=== PATIENT | female | born 1965 | race Caucasian/White ===

== ENCOUNTER 2017-10-10 13:25 | Inpatient (IN) ==
[2017-10-10] MEDS ORDERED: Bisacodyl 10 MG Supp RECTAL PRN (22:27)
[2017-10-10] MEDS ORDERED: Acetaminophen 325 MG Tablet PO PRN (22:27)
[2017-10-10] MEDS ORDERED: Temazepam 15 MG Capsule PO PRN (22:27)
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
[2017-10-10] MEDS ORDERED: Heparin Drip 25,000 UNIT/250 ML BAG IV.CONT PRN (22:59)
[2017-10-11 00:57] LABS: Hematocrit 34.1 % (35.0-46.0); Hemoglobin 11.4 gm/dL (11.6-15.3); Mean Corpuscular HGB Conc 33.4 % (32.0-36.0); Mean Corpuscular Hemoglobin 30.6 pg (27.0-34.0); Mean Corpuscular Volume 91.4 fL (80.0-100.0); Mean Platelet Volume 7.1 fL (7.0-11.0); Platelet Count 330 th/mm3 (150-450); Red Blood Count 3.73 mil/mm3 (4.00-5.30)
[2017-10-11] MEDS ORDERED: Chlorhexidine Gluconate 2% 1 Pack (2 Cloths) TOPICAL PRN (04:00)
[2017-10-11 04:56] LABS: Baso % (Auto) 0.2 % (0.0-2.0); Eos # (Auto) 0.2 th/mm3 (0.0-0.4); Eos % (Auto) 1.6 % (0.0-4.0); Hematocrit 35.4 % (35.0-46.0); Hemoglobin 11.9 gm/dL (11.6-15.3); Lymph # (Auto) 3.5 th/mm3 (1.0-4.8); Lymph % (Auto) 34.1 % (9.0-44.0); Mean Corpuscular HGB Conc 33.6 % (32.0-36.0); Mean Corpuscular Hemoglobin 30.6 pg (27.0-34.0); Mean Corpuscular Volume 91.2 fL (80.0-100.0); Mean Platelet Volume 6.9 fL (7.0-11.0); Mono # (Auto) 0.8 th/mm3 (0.0-0.9); Mono % (Auto) 7.8 % (0.0-8.0); Neut # (Auto) 5.7 th/mm3 (1.8-7.7); Neut % (Auto) 56.3 % (16.0-70.0); Platelet Count 357 th/mm3 (150-450); Red Blood Count 3.89 mil/mm3 (4.00-5.30); Red Cell Distribution Width 13.8 % (11.6-17.2); White Blood Count 10.1 th/mm3 (4.0-11.0)
[2017-10-11 05:09] LABS: INR 1.1 Ratio; Prothrombin Time 10.9 sec (9.8-11.6)
[2017-10-11 05:11] LABS: Activated Partial Thrombo Time 111.3 sec (24.3-30.1)
[2017-10-11 05:17] LABS: Calcium 8.9 mg/dL (8.5-10.1); Carbon Dioxide 24.5 meq/L (21.0-32.0); Potassium 3.5 meq/L (3.5-5.1)
[2017-10-11] MEDS: Chlorhexidine Gluconate 2% 1 Pack (2 Cloths) TOPICAL SCH (07:47)
[2017-10-11] MEDS: Famotidine 20 MG Tablet PO SCH (09:15)
[2017-10-11] MEDS: Ferrous Sulfate 325 MG Tablet PO SCH (09:15)
[2017-10-11] MEDS: amLODIPine 10 MG Tablet PO SCH (09:15)
[2017-10-11] MEDS: Senna/Docusate Sodium 8.6/50 MG Tablet PO SCH ×2 (09:15→20:35)
--- NOTE | 2017-10-11 13:27 | P.PNIM ---
Subjective Interval history: Follow up: PE Patient resting in bed Reports feeling better VSS Physical Exam Vital signs: Vital Signs 10/10/17 20:01 10/10/17 20:30 10/10/17 21:00 Temperature Pulse Rate 78 78 91 H Respiratory Rate 19 28 H 25 H Blood Pressure 171/70 H 155/73 H 168/88 H Pulse Oximetry 100 100 98 10/10/17 21:30 10/10/17 22:00 10/10/17 22:30 Temperature Pulse Rate 89 85 76 Respiratory Rate 25 H 26 H 23 Blood Pressure 143/79 H 150/88 H 139/73 Pulse Oximetry 99 100 99 10/10/17 23:00 10/11/17 00:00 10/11/17 01:00 Temperature 98.5 F Pulse Rate 79 72 74 Respiratory Rate 28 H 26 H 28 H Blood Pressure 127/76 126/66 130/68 Pulse Oximetry 99 98 97 10/11/17 02:00 10/11/17 02:59 10/11/17 03:00 Temperature Pulse Rate 68 66 Respiratory Rate 14 17 Blood Pressure 136/76 124/66 Pulse Oximetry 97 99 98 10/11/17 04:00 10/11/17 05:00 10/11/17 05:05 Temperature Pulse Rate 87 66 67 Respiratory Rate 27 H 17 17 Blood Pressure 138/88 114/57 L Pulse Oximetry 98 98 100 10/11/17 06:00 10/11/17 07:00 10/11/17 08:00 Temperature Pulse Rate 68 72 83 Respiratory Rate 18 20 23 Blood Pressure Pulse Oximetry 100 98 100 10/11/17 09:00 10/11/17 09:18 10/11/17 10:00 Temperature Pulse Rate 77 83 79 Respiratory Rate 28 H 27 H 25 H Blood Pressure 145/75 H Pulse Oximetry 99 97 99 10/11/17 10:01 10/11/17 11:00 10/11/17 11:01 Temperature Pulse Rate 78 85 82 Respiratory Rate 20 42 H 38 H Blood Pressure 135/63 116/59 L Pulse Oximetry 98 97 99 Intake & Output 10/10/17 10/11/17 10/11/17 18:59 06:59 18:59 Intake Total 480 / 480 Balance 480 / 480 Weight 94 kg Intake: Oral 480 / 480 Other: # Voids 5 # Bowel Movements 0 Weight On Admission 94 kg Narrative: GENERAL: This is a well-nourished, well-developed patient, in no apparent distress. CARDIOVASCULAR: Regular rate and rhythm RESPIRATORY: Clear to auscultation. Breath sounds equal bilaterally. GASTROINTESTINAL: Abdomen soft, non-tender, nondistended. Normal active bowel sounds MUSCULOSKELETAL: Extremities without clubbing, cyanosis, or edema. NEURO: Alert & Oriented x4 to person, place, time, situation. Moves all ext x4 Results - Labs CBC & Chem 7: 10/12/17 07:42 10/11/17 04:20 Laboratory Results - last 24 hr 10/10/17 10/11/17 10/11/17 20:00 00:09 04:20 WBC 12.0 H 10.1 RBC 3.73 L 3.89 L Hgb 11.4 L 11.9 Hct 34.1 L 35.4 MCV 91.4 91.2 MCH 30.6 30.6 MCHC 33.4 33.6 RDW 14.0 13.8 Plt Count 330 357 MPV 7.1 6.9 L Neut % (Auto) 56.3 Lymph % (Auto) 34.1 Hand % (Auto) 7.8 Eos % (Auto) 1.6 Baso % (Auto) 0.2 Neut # (Auto) 5.7 Lymph # (Auto) 3.5 Hand # (Auto) 0.8 Eos # (Auto) 0.2 Baso # (Auto) 0.0 WBC Differential . Differential Comment Auto diff final PT INR APTT Sodium Potassium Chloride Carbon Dioxide Anion Gap BUN Creatinine Estimated GFR Random Glucose Calcium Nasal Screen MRSA (PCR) Not detected 10/11/17 10/11/17 10/11/17 04:20 04:20 04:20 WBC RBC Hgb Hct MCV MCH MCHC RDW Plt Count MPV Neut % (Auto) Lymph % (Auto) Hand % (Auto) Eos % (Auto) Baso % (Auto) Neut # (Auto) Lymph # (Auto) Hand # (Auto) Eos # (Auto) Baso # (Auto) WBC Differential Differential Comment PT 10.9 INR 1.1 APTT 111.3 H* D Cancelled Sodium 142 Potassium 3.5 Chloride 105 Carbon Dioxide 24.5 Anion Gap 13 BUN 12 Creatinine 0.91 Estimated GFR 65 L Random Glucose 109 H Calcium 8.9 Nasal Screen MRSA (PCR) 10/11/17 10/11/17 05:28 10:35 WBC RBC Hgb Hct MCV MCH MCHC RDW Plt Count MPV Neut % (Auto) Lymph % (Auto) Hand % (Auto) Eos % (Auto) Baso % (Auto) Neut # (Auto) Lymph # (Auto) Hand # (Auto) Eos # (Auto) Baso # (Auto) WBC Differential Differential Comment PT INR APTT 120.9 H* 56.9 H D Sodium Potassium Chloride Carbon Dioxide Anion Gap BUN Creatinine Estimated GFR Random Glucose Calcium Nasal Screen MRSA (PCR) Assessment and Plan - Assessment (1) Hypertension Code(s): I10 - Essential (primary) hypertension Status: Acute (2) Asthma Code(s): J45.909 - Unspecified asthma, uncomplicated Status: Acute (3) Pulmonary embolism Code(s): I26.99 - Other pulmonary embolism without acute cor pulmonale Status : Acute Plan: Acute pulmonary embolus CTA reviewed and reveals: 1. Small proximal lobar and segmental pulmonary arterial filling defects characteristic of pulmonary emboli. 2. Significant thrombus in the main pulmonary arteries. 3. No evidence of acute airspace disease or congestion. US bilateral lower extremities reviewed and reveals : Negative exam. No sonographic or Doppler findings of deep venous thrombosis in either lower extremity. Patient was started on heparin drip with bolus in [place]. VSS will DC heparin drip and transition to Xarelto Dr. Horvath discussed the case with hematology/oncology hand button splitter no further recommendations at this time, recommends outpatient follow up with hematology/ oncology Hypertension Continue patient's home medication of amlodipine. Asthma inhaler as necessary. - Attending Attestation Patient examined. Assessment and plan formulated with Ana M RANDLE I agree with the above.
[2017-10-11] MEDS: Rivaroxaban 15 MG Tablet PO SCH ×2 (14:32→20:34)
[2017-10-12] MEDS: Chlorhexidine Gluconate 2% 1 Pack (2 Cloths) TOPICAL SCH (06:42)
[2017-10-12] MEDS: Levothyroxine 125 MCG Tablet PO SCH (07:00)
[2017-10-12] MEDS: Rivaroxaban 15 MG Tablet PO SCH ×2 (08:07→21:40)
[2017-10-12] MEDS: Senna/Docusate Sodium 8.6/50 MG Tablet PO SCH ×2 (08:07→21:41)
[2017-10-12] MEDS: Famotidine 20 MG Tablet PO SCH (08:07)
[2017-10-12] MEDS: Ferrous Sulfate 325 MG Tablet PO SCH (08:07)
[2017-10-12] MEDS: amLODIPine 10 MG Tablet PO SCH (08:07)
[2017-10-12 09:04] LABS: Hematocrit 38.4 % (35.0-46.0); Mean Corpuscular Hemoglobin 31.2 pg (27.0-34.0); Mean Corpuscular Volume 91.7 fL (80.0-100.0); Mean Platelet Volume 6.8 fL (7.0-11.0); Platelet Count 358 th/mm3 (150-450); Red Blood Count 4.18 mil/mm3 (4.00-5.30); Red Cell Distribution Width 14.1 % (11.6-17.2); White Blood Count 6.8 th/mm3 (4.0-11.0)
--- NOTE | 2017-10-12 14:42 | P.PNIM ---
Subjective Interval history: Pt feeling well today overall She had some slight dizziness today when she bent over to clean herself after using the bathroom and noted the dizziness was with positional head changes but otherwise is doing well. Physical Exam Vital signs: Vital Signs 10/11/17 16:15 10/11/17 20:00 10/12/17 00:00 Temperature 98.1 F 98 F 97.4 F L Pulse Rate 77 80 77 Respiratory Rate 20 18 18 Blood Pressure 143/66 H 136/85 111/81 Pulse Oximetry 98 99 97 10/12/17 04:00 10/12/17 08:00 Temperature 97.5 F L 97.5 F L Pulse Rate 58 L 70 Respiratory Rate 18 20 Blood Pressure 107/72 103/77 Pulse Oximetry 98 98 Intake & Output 10/11/17 10/12/17 10/12/17 18:59 06:59 18:59 Intake Total 240 / 240 1470 / 1470 Balance 240 / 240 1470 / 1470 Weight 93.4 kg 94.9 kg Intake: Oral 240 / 240 1470 / 1470 Other: # Voids 2 Date of Last Bowel Movement 10/12/17 # Bowel Movements 1 Narrative: GENERAL: This is a well-nourished, well-developed patient, in no apparent distress. CARDIO: Regular RESP: CTA bilaterally. ABD: +BS, soft, non-tender, nondistended. EXT: No edema. NEURO: Alert & Oriented x4 to person, place, time, situation. Moves all ext x4 Results - Labs CBC & Chem 7: 10/12/17 07:42 10/11/17 04:20 Laboratory Results - last 24 hr 10/12/17 07:42 WBC 6.8 RBC 4.18 Hgb 13.0 Hct 38.4 MCV 91.7 MCH 31.2 MCHC 34.0 RDW 14.1 Plt Count 358 MPV 6.8 L Assessment and Plan - Assessment (1) Hypertension Code(s): I10 - Essential (primary) hypertension Status: Acute (2) Asthma Code(s): J45.909 - Unspecified asthma, uncomplicated Status: Acute (3) Pulmonary embolism Code(s): I26.99 - Other pulmonary embolism without acute cor pulmonale Status : Acute Plan: Acute pulmonary embolus - Pt is a 52 y/o female with HTN, asthma, and hx of vulvar cancer - She presented to the ED at [facility] on 10/10/17 with complaints of chest pain x 1 week located in substernal region and her right scapular region with some associated shortness of breath and the pain at times increased with deep breathing. - Pulmonary CTA (10/10/17): 1. Small proximal lobar and segmental pulmonary arterial filling defects characteristic of pulmonary emboli. 2. Significant thrombus in the main pulmonary arteries. 3. No evidence of acute airspace disease or congestion. - US bilateral lower extremities (10/11/17) --> Negative exam. No sonographic or Doppler findings of deep venous thrombosis in either lower extremity. - Patient was started on heparin drip with bolus in [place]. - Heparin drip was d/c on 10/11 and pt was transitioned to Xarelto 15mg po BID x 7 days, then she will need to continue on Xarelto 20mg po daily after that. - Dr. Horvath discussed the case with hematology/oncology and they recommended a CT Abd/pelvis given her hx of vulvar cancer which will be performed prior to discharge. - Pt will need outpatient follow up with hematology/oncology, Dr. Bruno, at [facility] in 1-2 weeks - Pt will need to followup with her PCP, Dr. Johns, in 1 week. - Pt reports that she did drive to and from [place] about 2 months ago and that her mother had several strokes starting at age 50 and eventually at age 57. Hypertension - Continue patient's home medication of amlodipine. - BP is stable Asthma - Inhaler as necessary. - Attending Attestation Patient examined. Assessment and plan formulated with Joanna Velez PA-C. I agree with the above.
--- NOTE | 2017-10-12 20:44 | CT ---
EXAM DATE: 10/12/2017 8:38 PM EDT AGE/SEX: 52 years / Female INDICATIONS: Vulvar cancer. Evaluate for metastatic disease. CLINICAL DATA: This is the patient's initial encounter. Patient reports that signs and symptoms have been present for 1 day and indicates a pain score of 0/10. MEDICAL/SURGICAL HISTORY: Hypertension. Asthma. Gastroesophageal reflux disease. Vulvar canc er section. ORAL CONTRAST: No oral contrast ingested. RADIATION DOSE: 16.34 CTDI (mGy) COMPARISON: No prior exams available for comparison. TECHNIQUE: Multiple contiguous axial images were obtained through the abdomen and pelvis following b olus infusion of 95 ml Omnipaque 350 (iohexol) nonionic water-soluble contrast as a single exam dos e. No oral contrast ingested. Using automated exposure control and adjustment of the mA and/or kV ac cording to patient size, radiation dose was kept as low as reasonably achievable to obtain optimal di agnostic quality images. DICOM format image data is available electronically for review and comparis on. FINDINGS: Lower Lungs: The visualized lower lungs are clear. Liver: The liver has a homogeneous density without space-occupying lesion. There is no dilation of th e biliary tree. There is mild hepatic steatosis. There is subtle high density in portions of the gall bladder with no definite calcification. Spleen: Homogeneous density without enlargement. Pancreas: Unremarkable without mass or calcification. Kidneys: Normal in size and shape. No evidence of mass or hydronephrosis. Adrenal Glands: Unremarkable. Aorta: The aorta and proximal iliac vessels are grossly unremarkable without aneurysmal dilation. Bowel/Mesentery: The bowel loops are grossly unremarkable. The cecum and sigmoid colon have a normal configuration. Abdominal Wall: Intact. Retroperitoneum: No evidence of adenopathy in the retrocrural, para-aortic, or deep pelvic regions. Bladder: Contours are smooth. Reproductive Organs: No abnormal masses or calcifications seen. Inguinal: Postsurgical changes are noted in both inguinal regions with small reactive appearing lymp h nodes. There is no definite adenopathy. There is mild postsurgical change and scarring. Bony Structures: Unremarkable. CONCLUSION: 1. No evidence of metastatic disease. 2. Subtle high density in portions of the gallbladder which could indicate sludge. 3. Mild hepatic steatosis. Electronically signed by: Hao Pickett MD 10/12/2017 8:43 PM EDT
[2017-10-13] MEDS: Chlorhexidine Gluconate 2% 1 Pack (2 Cloths) TOPICAL SCH (06:35)
[2017-10-13] MEDS: Levothyroxine 125 MCG Tablet PO SCH (06:35)
[2017-10-13] MEDS ORDERED: Famotidine 20 MG Tablet PO SCH (09:00)
[2017-10-13] MEDS: amLODIPine 10 MG Tablet PO SCH (09:22)
[2017-10-13] MEDS: Senna/Docusate Sodium 8.6/50 MG Tablet PO SCH (09:24)
[2017-10-13] MEDS: Rivaroxaban 15 MG Tablet PO SCH (09:24)
[2017-10-13] MEDS: Ferrous Sulfate 325 MG Tablet PO SCH (09:47)
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
== END 2017-10-13 11:45 | disposition home or self-care (01) ==
LOC: NEDDLT 13:25 → HIMC 19:25 → N04 10-11 16:06
PROVIDERS: ADMIT Hospitalist; ATTEND Hospitalist